=== PATIENT | female | born 1950 | race Caucasian/White ===

== ENCOUNTER 2017-03-27 10:03 | Outpatient (CLI) | payer MEDICARE, OTHER ==
--- NOTE | 2017-03-27 12:35 | XRAY Report ---
ESOPHAGRAM: 03/27/2017 CLINICAL INDICATION: Cough, food sticking. FINDINGS: Esophagram was performed in the upright and prone position. The hypopharynx appears unrem arkable. Diffuse presbyesophagus is present. No esophageal ulceration, mass lesion, or stricturing is identified. A small sliding hiatal hernia is present, which produced reflux throughout the course of the study. A 13-mm barium pill passed freely through the esophagus and into the stomach. IMPRESSION: PRESBYESOPHAGUS. SMALL SLIDING HIATAL HERNIA, PRODUCING REFLUX. NO EVIDENCE OF ULCERAT ION OR MASS LESION. FLUOROSCOPY TIME: 3 minutes, 9 seconds; 18 spot images obtained. JOB #: [id number] EXT JOB #:[id number]
== END 2017-03-27 10:04 | disposition home or self-care (01) ==
LOC: DI 10:03
PROVIDERS: ATTEND Internal Medicine
DX: K22.8 Other specified diseases of esophagus (principal); K44.9 Diaphragmatic hernia without obstruction or gangrene; K21.9 Gastro-esophageal reflux disease without esophagitis
CPT/HCPCS: 74220

== ENCOUNTER 2017-06-30 11:47 | Outpatient (CLI) | payer MEDICARE, OTHER ==
--- NOTE | 2017-06-30 18:40 | XRAY Report ---
THREE-VIEW RIGHT FOURTH FINGER: 06/30/2017 CLINICAL INDICATION: Injury, pain. FINDINGS: AP, lateral, oblique views of the right fourth finger demonstrate no evidence of fracture or dislocation. 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 No radiopaque foreign body is seen in the soft tissues. IMPRESSION: NORMAL RIGHT FOURTH FINGER. JOB #: [id number] EXT JOB #:[id number]
== END 2017-06-30 11:48 | disposition home or self-care (01) ==
LOC: DI.S 11:47
PROVIDERS: ATTEND Nurse Practitioner Family
DX: S69.91XA Unspecified injury of right wrist, hand and finger(s), initial encounter (principal)
CPT/HCPCS: 73140

== ENCOUNTER 2018-06-10 10:43 | Outpatient (CLI) | payer MEDICARE, OTHER ==
[2018-06-10 17:12] LABS: BASOPHILS % (AUTO) 0.5 %; EOSINOPHILS # (AUTO) 0.1 10^3/uL (0.0-0.7); EOSINOPHILS % (AUTO) 1.7 %; HGB - HEMOGLOBIN 13.4 g/dL (12.0-16.0); LYMPHOCYTES % (AUTO) 35.8 %; MEAN CORPUSCULAR HGB CONC 33.8 g/dL (32.0-36.0); MEAN CORPUSCULAR VOLUME 94.6 fL (81.0-99.0); MEAN PLATELET VOLUME 8.2 fL (7.9-10.8); MONOCYTES # (AUTO) 0.3 10^3/uL (0.0-1.0); MONOCYTES % (AUTO) 6.3 %; NEUTROPHILS % (AUTO) 55.7 %; PLT - PLATELET COUNT 260 10^3/uL (130-450); RED BLOOD COUNT 4.18 10^6/uL (4.20-5.40); RED CELL DISTRIBUTION WIDTH 13.4 % (12.0-15.0); WHITE BLOOD COUNT 5.5 x10^3/uL (4.8-10.8)
[2018-06-10 17:44] LABS: ALBUMIN 3.8 g/dL (3.2-5.5); ALBUMIN/GLOBULIN RATIO 1.2 (1.0-2.2); BILIRUBIN,TOTAL 0.7 mg/dL (0.2-1.0); CALCIUM 9.2 mg/dL (8.5-10.3); CREATININE 0.8 mg/dL (0.4-1.0); TOTAL PROTEIN 6.9 g/dL (6.7-8.2)
[2018-06-10 17:55] LABS: THYROID STIMULATING HORMONE 1.79 uIU/mL (0.34-5.60)
[2018-06-10 17:57] LABS: FREE T4 (FREE THYROXINE) 1.28 ng/dL (0.58-1.64)
== END 2018-06-10 10:44 | disposition home or self-care (01) ==
LOC: LAB.F 10:43
PROVIDERS: ATTEND Family Medicine
DX: E03.9 Hypothyroidism, unspecified (principal); I10 Essential (primary) hypertension
CPT/HCPCS: 36415; 80053; 84439; 84443; 84481; 85025

== ENCOUNTER 2018-07-09 12:21 | Outpatient (CLI) | payer MEDICARE, OTHER ==
--- NOTE | 2018-07-09 19:10 | XRAY Report ---
Reason: HEADACHE,CERVICALGIA Procedure Date: 07/09/2018 Accession Number: [id number] / [id number] Procedure: XR - Skull 2 View CPT Code: FULL RESULT: EXAM: SKULL RADIOGRAPHY EXAM DATE: 07/09/2018 01:09 PM. CLINICAL HISTORY: HEADACHE,CERVICALGIA. COMPARISON: None. TECHNIQUE: 2 views. FINDINGS: Bones: Normal. No fractures or bone lesions. Sinuses: Normal. No opacities or fluid levels. Other: Normal. No soft tissue swelling. IMPRESSION: Normal skull radiography. RADIA
--- NOTE | 2018-07-09 19:16 | XRAY Report ---
Reason: Unilateral headache Procedure Date: 07/09/2018 Accession Number: [id number] / [id number] Procedure: XR - Cervical Spine 2 View CPT Code: FULL RESULT: EXAM: CERVICAL SPINE RADIOGRAPHY EXAM DATE: 07/09/2018 01:09 PM. CLINICAL HISTORY: Unilateral headache. Cervicalgia. COMPARISONS: None. TECHNIQUE: 3 views. FINDINGS: Alignment: Normal. No spondylolisthesis or scoliosis. Bones: The cervical vertebral bodies and posterior elements are well visualized from the skull base through C7-T1. No fractures or bone lesions. Disks: The C4 to C7 disk spaces are moderately narrowed with anterior endplate spurring. Facets: No degenerative disease. Soft Tissues: Normal. No prevertebral soft tissue swelling. The visualized lung apices are clear. IMPRESSION: Moderate degenerative disk change from C4 to C7. RADIA
== END 2018-07-09 12:22 | disposition home or self-care (01) ==
LOC: DI 12:21
PROVIDERS: ATTEND Internal Medicine
DX: M50.321 Other cervical disc degeneration at C4-C5 level (principal); R51 Headache
CPT/HCPCS: 70250; 72040

== ENCOUNTER 2018-10-27 15:38 | Outpatient (CLI) | payer MEDICARE, OTHER ==
[2018-10-27 18:00] LABS: CALCIUM 9.3 mg/dL (8.5-10.3); CREATININE 0.9 mg/dL (0.4-1.0)
== END 2018-10-27 15:39 | disposition home or self-care (01) ==
LOC: LAB.F 15:38
PROVIDERS: ATTEND Internal Medicine Cardiovascular Disease
DX: R06.09 Other forms of dyspnea (principal); I10 Essential (primary) hypertension
CPT/HCPCS: 36415; 80048; 83880

== ENCOUNTER 2018-11-10 15:52 | Outpatient (CLI) | payer MEDICARE, OTHER ==
--- NOTE | 2018-11-11 13:00 | Ultrasound Report ---
Reason: ABDOMINAL PAIN Procedure Date: 11/10/2018 Accession Number: [id number] / [id number] Procedure: US - Abdomen Complete CPT Code: FULL RESULT: EXAM: ABDOMEN ULTRASOUND EXAM DATE: 11/10/2018 04:06 PM. CLINICAL HISTORY: Abdominal pain. COMPARISON: None. TECHNIQUE: Real-time scanning was performed with static images obtained. FINDINGS: Liver: Liver appears echogenic. Right lobe of the liver measures at least 16.2 cm. Main portal vein flow: Hepatopetal. Gallbladder: Status post cholecystectomy. Biliary System: Common bile duct measures 10 mm, within normal limits status post cholecystectomy. No intrahepatic biliary ductal dilation. Pancreas: Visualized portion is unremarkable. Kidneys: Right: 10.8 cm longitudinally. Normal. No contour-deforming mass, stones, or hydronephrosis. Left: 11.4 cm longitudinally. Normal. No contour-deforming mass, stones, or hydronephrosis. Spleen: 9.7 cm. Normal in size and echotexture. Aorta and Inferior Vena Cava: Unremarkable. Other: None. IMPRESSION: Echogenic liver parenchyma which is most often associated with parenchymal disease such as steatosis. RADIA
== END 2018-11-10 15:53 | disposition home or self-care (01) ==
LOC: DI 15:52
PROVIDERS: ATTEND Internal Medicine Gastroenterology
DX: R10.9 Unspecified abdominal pain (principal)
CPT/HCPCS: 76700

== ENCOUNTER 2018-12-21 10:15 | Outpatient (CLI) | payer MEDICARE, OTHER ==
--- NOTE | 2018-12-21 17:19 | DEXA Report ---
Reason: ASYMPTOMATIC MENOPAUSAL STATE Procedure Date: 12/21/2018 Accession Number: [id number] / [id number] Procedure: DEX - Dexa Spine and/or Hip CPT Code: FULL RESULT: EXAM: Dexa Spine and/or Hip DATE: 12/21/2018 11:12 AM CLINICAL HISTORY: ASYMPTOMATIC MENOPAUSAL STATE TECHNIQUE: Dual energy x-ray absorptiometry (DXA) was performed on a mobileo System. Regions measured are the AP Spine, femoral neck, and if needed forearm. COMPARISON: None. In accordance with the International Society for Clinical Densitometry (ISCD) guidelines, data from previous exams may be reanalyzed using current recommendations and techniques. This is done to allow a more accurate basis for comparison with the current study. FINDINGS: The data for the lumbar spine is as follows: BMD (g/cm/cm) T-SCORE Z-SCORE REGION L1 1.427 2.5 3.4 L2 1.473 2.3 3.2 L3 1.593 3.3 4.2 L4 1.622 3.5 4.4 TOTAL 1.532 2.9 3.8 NOTE: All evaluable vertebrae are used for classification The data for the hip is as follows: BMD (g/cm/cm) T-SCORE Z-SCORE REGION Neck 0.968 -0.5 0.7 TOTAL 0.951 -0.4 0.5 NOTE: The femoral neck or total proximal femur, whichever is lowest, is used for classification. IMPRESSION: THE WHO CLASSIFICATION BASED ON THE INTERNATIONAL REFERENCE STANDARD IS NORMAL. THE FRACTURE RISK IS NOT INCREASED. RECOMMENDATION: Patients with diagnosis of osteoporosis or osteopenia should have regular bone mineral density assessment. For those eligible for Medicare, routine testing is allowed once every 2 years. Testing frequency can be increased for patients who have rapidly progressing disease or for those who are receiving medical therapy to restore bone mass. COMMENT: World Health Organization (WHO) definitions for osteoporosis and osteopenia: NORMAL BMD: T-score at -1.0 or higher, fracture risk is low OSTEOPENIA BMD: T-score between -1.0 and -2.5, fracture risk is increased. OSTEOPOROSIS BMD: T-score at -2.5 or lower, fracture risk is high. National Osteoporosis Foundation recommends: 1. Obtain adequate dietary calcium (at least 1200 mg per day) and vitamin D (400-800 international units per day). 2. Participate, as appropriate, in regular weightbearing and muscle-strengthening exercise. 3. Avoid tobacco use and reduce alcohol and caffeine intake. 4. For more detailed information see the website at www.NOF.org.
== END 2018-12-21 10:16 | disposition home or self-care (01) ==
LOC: DI 10:15
PROVIDERS: ATTEND Internal Medicine
DX: Z13.820 Encounter for screening for osteoporosis (principal); Z78.0 Asymptomatic menopausal state
CPT/HCPCS: 77080

== ENCOUNTER 2019-05-24 08:00 | Outpatient (CLI) | payer MEDICARE, OTHER ==
[2019-05-24 18:47] LABS: BASOPHILS % (AUTO) 0.5 %; EOSINOPHILS # (AUTO) 0.1 10^3/uL (0.0-0.7); EOSINOPHILS % (AUTO) 1.5 %; HGB - HEMOGLOBIN 12.7 g/dL (12.0-16.0); LYMPHOCYTES # (AUTO) 2.2 10^3/uL (1.5-3.5); LYMPHOCYTES % (AUTO) 27.8 %; MEAN CORPUSCULAR HEMOGLOBIN 31.3 pg (27.0-31.0); MEAN CORPUSCULAR HGB CONC 32.2 g/dL (32.0-36.0); MEAN CORPUSCULAR VOLUME 97.3 fL (81.0-99.0); MEAN PLATELET VOLUME 10.1 fL (7.9-10.8); MONOCYTES # (AUTO) 0.6 10^3/uL (0.0-1.0); MONOCYTES % (AUTO) 7.3 %; NEUTROPHILS % (AUTO) 62.5 %; PLT - PLATELET COUNT 295 10^3/uL (130-450); RED BLOOD COUNT 4.06 10^6/uL (4.20-5.40); RED CELL DISTRIBUTION WIDTH 12.8 % (12.0-15.0)
== END 2019-05-24 23:59 | disposition home or self-care (01) ==
LOC: LAB.S 08:00
PROVIDERS: ATTEND Physician Assistant
DX: R10.9 Unspecified abdominal pain (principal)
CPT/HCPCS: 36415; 85025

== ENCOUNTER 2019-05-30 10:59 | Outpatient (CLI) | payer MEDICARE, OTHER ==
[2019-05-30] MEDS ORDERED: IOVERSOL 320 50 ML VIAL ONE (11:21)
[2019-05-30] MEDS ORDERED: IOVERSOL 320 100 ML VIAL IVP ONE ×2 (11:21→16:44)
[2019-05-30 11:29] LABS: CREATININE 0.9 mg/dL (0.4-1.0)
[2019-05-30] MEDS ORDERED: IOVERSOL 320 50 ML VIAL PO ONE (16:44)
--- NOTE | 2019-05-31 15:45 | CT Report ---
Reason: ABDOMINAL PAIN, GERD Procedure Date: 05/30/2019 Accession Number: [id number] / [id number] Procedure: CT - Abdomen/Pelvis W CPT Code: FULL RESULT: EXAM: CT ABDOMEN AND PELVIS EXAM DATE: 05/30/2019 12:44 PM. CLINICAL HISTORY: ABDOMINAL PAIN, GERD. COMPARISONS: None. TECHNIQUE: Routine helical CT imaging was performed through the abdomen and pelvis. IV contrast: OPTI 320 100ML. Enteric contrast: No. Reconstructions: Coronal and sagittal. In accordance with CT protocol optimization, one or more of the following dose reduction techniques were utilized for this exam: automated exposure control, adjustment of mA and/or KV based on patient size, or use of iterative reconstructive technique. FINDINGS: Lung Bases: Linear changes are noted in the lung bases most likely present atelectasis or scarring. 2 nodules are demonstrated in the right lower lobe of lung. Solid nodule measures 7 mm (image 5 of series 3). There is a cavitary lesion measuring 8 mm (7 series 3). No pleural effusion is noted. Liver is without evidence of an enhancing mass. There are postoperative changes consistent with cholecystectomy. , Pancreas, and adrenal glands are normal kidneys without evidence of mass or hydronephrosis. Peritoneal Cavity/Bowel: There is no CT evidence of acute appendicitis. Diverticuli are seen throughout the colon. There is no evidence of diverticulitis. Pelvic Organs: No mass or cyst is seen within the pelvis. There is no periaortic or pelvic lymphadenopathy. Vasculature: There is atherosclerosis of the aorta and its branches, including the coronary arteries. Bones: Degenerative changes of the thoracic and lumbar spine are noted. There are postoperative changes consistent with a right hip arthroplasty. IMPRESSION: Right lower lobe lung nodules. A 6-12 month follow-up CT is recommended Atherosclerosis of the aorta and its branches, including the coronary arteries. Diverticulosis throughout the colon without evidence of diverticulitis. RADIA
== END 2019-05-30 11:00 | disposition home or self-care (01) ==
LOC: DI 10:59
PROVIDERS: ATTEND Physician Assistant
DX: R10.9 Unspecified abdominal pain (principal); K21.9 Gastro-esophageal reflux disease without esophagitis; R91.8 Other nonspecific abnormal finding of lung field; I25.10 Atherosclerotic heart disease of native coronary artery without angina pectoris; I70.0 Atherosclerosis of aorta; K57.30 Diverticulosis of large intestine without perforation or abscess without bleeding
CPT/HCPCS: 36415; 74177; 82565; 84520; Q9967

== ENCOUNTER 2019-07-17 18:48 | Emergency (ER) | payer MEDICARE, OTHER ==
--- NOTE | 2019-07-17 19:17 | ED Physician Documentation ---
PD HPI FEMALE - Stated complaint Stated Complaint: FEM - Chief complaint Chief Complaint: UTI - History obtained from History obtained from: Patient - History of Present Illness Timing - onset: How many weeks ago (2.5) Timing - details: Still present Associated symptoms: Chest/shoulder pain (Below the right shoulder blade), Dysuria, Urinary frequency. No: Fever, Abdominal pain, Hematuria Recently seen: Not recently seen - Additional information Additional information: This is a 69-year-old who presents with her complaints that they were on a trip in [place] for about a week and a half returned home on Thursday and she had started developing symptoms of urinary tract infection while on the trip. She had increased urination and only dribbling of urine feeling letter urgency. A couple of days ago she developed pain, below the right shoulder blade in the right flank area. She does have a history of UTIs. She has not seen blood in the urine. Denies fever, nausea or vomiting or diarrhea. She has not felt dizzy. She has not noted any rash. Review of Systems Constitutional: denies: Fever Respiratory: reports: Cough (chronic and prior work-up). denies: Dyspnea PD PAST MEDICAL HISTORY - Past Medical History Cardiovascular: Hypertension Respiratory: Asthma Endocrine/Autoimmune: HyPOthyroidism GI: GERD, Colon polyps : None HEENT: None Psych: None Musculoskeletal: None Derm: None - Past Surgical History Past Surgical History: Yes General: Cholecystectomy, Colonoscopy Ortho: Hip replacement, Knee replacement, Shoulder arthroplasty, Arthroscopic surgery /WHEAT CLEANER: Hysterectomy, Breast reduction - Present Medications Home Medications: Ambulatory Orders Medication Instructions Recorded Confirmed Cholecalciferol (Vitamin D3) 2,000 unit PO DAILY 03/16/13 08/27/14 [Vitamin D] Levothyroxine [Synthroid] 112 mcg PO QDAC 03/16/13 08/27/14 cloNIDine [Catapres] 0.1 mg PO TID 03/16/13 08/27/14 Albuterol Sulfate 4 mg PO BID #20 tablet 07/30/16 Azithromycin 250 mg 07/30/16 Benzonatate [Tessalon] 100 mg PO TID PRN #25 capsule 07/30/16 Cetirizine [ZyrTEC] 10 mg PO DAILY #15 tablet 07/30/16 dexAMETHasone [Decadron] 4 mg PO DAILY #5 tablet 07/30/16 Famotidine 20 mg PO DAILY #30 tablet 09/14/18 Sucralfate [Carafate] 1 gm PO ACHS #40 tablet 09/14/18 - Allergies Allergies/Adverse Reactions: Allergies Allergy/AdvReac Type Severity Reaction Status Date / Time acetaminophen [From Vicodin] Allergy Intermediate Nausea Verified 07/17/19 18:54 hydrocodone bitartrate * Allergy Intermediate Nausea Verified 07/17/19 18:54 [From Vicodin] latex Allergy Intermediate Hives Verified 07/17/19 18:54 morphine Allergy Intermediate Nausea Verified 07/17/19 18:54 - Social History Does the pt smoke?: No Smoking Status: Never smoker Does the pt drink ETOH?: Yes Does the pt have substance abuse?: No - Immunizations Immunizations are current?: Yes PD ED PE NORMAL - Vitals Vital signs reviewed: Yes - General General: Alert and oriented X 3, No acute distress, Well developed/nourished - HEENT HEENT: Atraumatic, Moist mucous membranes - Cardiac Cardiac: RRR, No murmur - Respiratory Respiratory: No respiratory distress - Abdomen Abdomen: Normal bowel sounds, Soft, Non tender - Back Back: Other (Complains of right costovertebral angle tenderness). No: No CVA TTP - Derm Derm: Normal color, Warm and dry, No rash - Extremities Extremities: No edema - Neuro Neuro: Alert and oriented X 3, No motor deficit, No sensory deficit, Normal speech - Psych Psych: Normal mood, Normal affect Results - Vitals Vitals: Oxygen O2 Source Room air - Labs Labs: Laboratory Tests 07/17/19 19:15 Urine Color LT. YELLOW Urine Clarity CLEAR Urine pH 5.5 Ur Specific [place] 1.025 Urine Protein NEGATIVE Urine Glucose (UA) NEGATIVE Urine Ketones TRACE Urine Occult Blood NEGATIVE Urine Nitrite NEGATIVE Urine Bilirubin NEGATIVE Urine Urobilinogen 0.2 (NORMAL) Ur Leukocyte Esterase NEGATIVE Ur Microscopic Review NOT INDICATED Urine Culture Comments NOT INDICATED PD MEDICAL DECISION MAKING - ED course Complexity details: reviewed results, d/w patient, d/w family ED course: Urinalysis was negative. The patient does not have a rash to suggest shingles. I am wondering if this could be musculoskeletal due to all the travel and sitting. Aleve or ibuprofen if needed for pain. Follow-up with your primary care provider if her symptoms persist. Drink lots of water. Departure - Departure Disposition: 01 Home, Self Care Clinical Impression: Right-sided back pain Qualifiers: Back pain location: low back pain Chronicity: acute Sciatica presence: without sciatica Qualified Code(s): M54.5 - Low back pain Condition: Good Instructions: Low Back Pain Self Care, ED Back Care Tips, ANTI-INFLAMMATORY, General Follow-Up: DIANA WINTERS MD [Primary Care Provider] - Comments: Try to avoid any strenuous activity but also do not be too sedentary. Ice to the lower back and Aleve or ibuprofen [id number]. I have provided some gentle stretching exercises. Follow-up with the primary care provider if your symptoms persist or worsen. Discharge Date/Time: 07/17/19 21:10
[2019-07-17 19:23] LABS: BILIRUBIN,URINE NEGATIVE (NEGATIVE); GLUCOSE, URINE (UA) NEGATIVE (NEGATIVE); KETONES,URINE (UA) TRACE mg/dL (NEGATIVE); LEUKOCYTE ESTERASE, URINE NEGATIVE (NEGATIVE); NITRITE,URINE NEGATIVE (NEGATIVE); OCCULT BLOOD,URINE NEGATIVE (NEGATIVE); PH,URINE 5.5 PH (5.0-7.5); PROTEIN,URINE NEGATIVE (NEGATIVE); UROBILINOGEN,URINE 0.2 (NORMAL) E.U./dL (NORMAL)
[2019-07-17 19:24] LABS: CLARITY,URINE CLEAR (CLEAR)
[2019-07-17 21:10] VITALS: BP 148/85
== END 2019-07-17 21:10 | disposition home or self-care (01) ==
LOC: ED 18:48
DX: M54.5 Low back pain (principal); I10 Essential (primary) hypertension
CPT/HCPCS: 81001; 81003; 87086; 99282

== ENCOUNTER 2020-03-20 15:02 | Outpatient (CLI) | payer MEDICARE, OTHER ==
[2020-03-20 20:08] LABS: ALBUMIN 4.3 g/dL (3.2-5.5); ALBUMIN/GLOBULIN RATIO 1.3 (1.0-2.2); BILIRUBIN,TOTAL 0.7 mg/dL (0.2-1.0); CALCIUM 9.6 mg/dL (8.5-10.3); TOTAL PROTEIN 7.7 g/dL (6.7-8.2)
== END 2020-03-20 15:03 | disposition home or self-care (01) ==
LOC: LAB.S 15:02
PROVIDERS: ATTEND Physician Assistant Medical
DX: Z87.19 Personal history of other diseases of the digestive system (principal)
CPT/HCPCS: 36415; 80053

== ENCOUNTER 2020-03-20 15:57 | Outpatient (CLI) | payer MEDICARE, OTHER ==
--- NOTE | 2020-03-20 17:06 | CT Report ---
PROCEDURE: Abdomen/Pelvis WO INDICATIONS: Abdominal pain TECHNIQUE: Noncontrast 5 mm thick sections acquired from the diaphragms to the symphysis. 5 mm coronal and sagi ttal reformats were then performed. For radiation dose reduction, the following was used: automated exposure control, adjustment of mA and/or kV according to patient size. COMPARISON: None. FINDINGS: Image quality: Excellent. ABDOMEN: Exam is limited due to lack of IV contrast. In particular, evaluation of the solid abdominal viscera and vasculature is limited. Lung bases: Lung bases are clear. Heart size is normal. Solid organs: Liver and spleen are normal in size. Gallbladder has been removed. Pancreas unremarka ble. No adrenal gland mass. No renal calculus or hydronephrosis. Normal course and caliber of the ure ters. Peritoneum and bowel: Unenhanced bowel loops demonstrate normal wall thickness and caliber. No free fluid or air. Nodes and vessels: No retroperitoneal or mesenteric adenopathy by size criteria. Aorta and inferior vena cava are normal in caliber. Miscellaneous: No ventral hernias. PELVIS: Genitourinary: Bladder wall thickness is normal. Status post hysterectomy and presumably bilateral salpingo-oophorectomy. Miscellaneous: No inguinal hernias or adenopathy. Bones: Status post right total hip arthroplasty. [id number] osteophytic changes in the left fem oral acetabular joint. Degenerative changes in the lower lumbar spine. No acute or suspicious osseous lesion. IMPRESSION: No acute finding or abnormality to explain abdominal pain. Reviewed by: Xavier Antonio MD on 03/20/2020 5:05 PM PDT Approved by: Xavier Antonio MD on 03/20/2020 5:05 PM PDT Station ID: [id number]
== END 2020-03-20 15:58 | disposition home or self-care (01) ==
LOC: DI 15:57
PROVIDERS: ATTEND Physician Assistant Medical
DX: N81.6 Rectocele (principal); R10.9 Unspecified abdominal pain; Z87.19 Personal history of other diseases of the digestive system
CPT/HCPCS: 74176

== ENCOUNTER 2020-05-15 13:49 | Outpatient (CLI) | payer MEDICARE, OTHER ==
--- NOTE | 2020-05-15 14:30 | XRAY Report ---
PROCEDURE: Chest 2 View X-Ray INDICATIONS: BODY IN DIGESTIVE TRACT TECHNIQUE: 2 view(s) of the chest. COMPARISON: Chest x-ray, one view, 09/14/2018. FINDINGS: Surgical changes and devices: None. Lungs and pleura: No pleural effusions or pneumothorax. Lungs are clear. Right diaphragmatic event ration. Mediastinum: Mediastinal contours are normal. Heart size is normal. Bones and chest wall: No suspicious bony abnormalities. Soft tissues appear unremarkable. IMPRESSION: No acute cardiopulmonary disease. Reviewed by: Abhinav Ryder MD on 05/15/2020 2:28 PM PDT Approved by: Abhinav Ryder MD on 05/15/2020 2:28 PM PDT Station ID: [id number]
== END 2020-05-15 13:50 | disposition home or self-care (01) ==
LOC: DI.S 13:49
PROVIDERS: ATTEND Internal Medicine Gastroenterology
DX: T18.9XXD Foreign body of alimentary tract, part unspecified, subsequent encounter (principal)
CPT/HCPCS: 71046

== ENCOUNTER 2020-10-16 10:57 | Outpatient (CLI) | payer MEDICARE, OTHER | END 2020-10-16 10:58 | disposition home or self-care (01) | LOC: COV 10:57 | PROVIDERS: ATTEND Family Medicine | DX: R05 Cough (principal); R06.02 Shortness of breath; M79.10 Myalgia, unspecified site; R53.83 Other fatigue; R68.83 Chills (without fever); R07.0 Pain in throat; R09.81 Nasal congestion; J34.89 Other specified disorders of nose and nasal sinuses; Z20.822 Contact with and (suspected) exposure to COVID-19 ==

== ENCOUNTER 2020-11-20 10:43 | Outpatient (CLI) | payer MEDICARE, OTHER | END 2020-11-20 10:44 | disposition home or self-care (01) | LOC: LAB.S 10:43 | PROVIDERS: ATTEND Internal Medicine Cardiovascular Disease | DX: I10 Essential (primary) hypertension (principal); R00.0 Tachycardia, unspecified; E78.5 Hyperlipidemia, unspecified; R01.1 Cardiac murmur, unspecified | CPT/HCPCS: 36415; 81599; 82172 ==

== ENCOUNTER 2022-01-08 15:01 | Outpatient (CLI) | payer MEDICARE, OTHER ==
[2022-01-08 20:28] LABS: ALBUMIN 4.1 g/dL (3.2-5.5); ALBUMIN/GLOBULIN RATIO 1.3 (1.0-2.2); ALKALINE PHOSPHATASE 55 IU/L (42-121); ALT ALANINE AMINOTRANSFERASE 23 IU/L (10-60); AST ASPARTATE AMINOTRANSFERASE 20 IU/L (10-42); BILIRUBIN,TOTAL 0.6 mg/dL (0.2-1.0); BUN - BLOOD UREA NITROGEN 21 mg/dL (6-20); CALCIUM 9.5 mg/dL (8.5-10.3); CARBON DIOXIDE - CO2 27 mmol/L (21-32); CHLORIDE 102 mmol/L (101-111); CHOL/HDL RATIO 3.5 (<4.4); CHOLESTEROL 197 mg/dL; GFR - MDRD 54 (>89); GLUCOSE 108 mg/dL (70-100); HDL CHOLESTEROL 57 mg/dL; LDL CHOLESTEROL,CALCULATED 118 mg/dL; LDL/HDL RATIO 2.1 (<4.4); POTASSIUM 4.4 mmol/L (3.5-5.0); SODIUM 138 mmol/L (135-145); TOTAL PROTEIN 7.3 g/dL (6.7-8.2); TRIGLYCERIDES 110 mg/dL; VLDL CHOLESTEROL 22 mg/dL
== END 2022-01-08 15:02 | disposition home or self-care (01) ==
LOC: LAB.S 15:01
PROVIDERS: ATTEND Internal Medicine Cardiovascular Disease
DX: I10 Essential (primary) hypertension (principal); E78.5 Hyperlipidemia, unspecified
CPT/HCPCS: 36415; 80053; 80061; 81599; 82172; 83721

== ENCOUNTER 2022-01-10 22:06 | Emergency (ER) | payer MEDICARE, OTHER ==
[2022-01-10 23:08] LABS: BASOPHILS % (AUTO) 0.2 %; EOSINOPHILS # (AUTO) 0.1 10^3/uL (0.0-0.7); EOSINOPHILS % (AUTO) 0.5 %; HCT - HEMATOCRIT 38.9 % (37.0-47.0); HGB - HEMOGLOBIN 13.2 g/dL (12.0-16.0); LYMPHOCYTES # (AUTO) 1.5 10^3/uL (1.5-3.5); LYMPHOCYTES % (AUTO) 11.4 %; MEAN CORPUSCULAR HEMOGLOBIN 32.2 pg (27.0-31.0); MEAN CORPUSCULAR HGB CONC 33.9 g/dL (32.0-36.0); MEAN CORPUSCULAR VOLUME 94.9 fL (81.0-99.0); MEAN PLATELET VOLUME 9.2 fL (7.9-10.8); MONOCYTES # (AUTO) 0.5 10^3/uL (0.0-1.0); MONOCYTES % (AUTO) 4.1 %; NEUTROPHILS # (AUTO) 10.7 10^3/uL (1.5-6.6); NEUTROPHILS % (AUTO) 83.5 %; PLT - PLATELET COUNT 262 10^3/uL (130-450); RED CELL DISTRIBUTION WIDTH 12.5 % (12.0-15.0); WHITE BLOOD COUNT 12.8 x10^3/uL (4.8-10.8)
[2022-01-10 23:37] LABS: ALBUMIN 3.9 g/dL (3.2-5.5); ALBUMIN/GLOBULIN RATIO 1.1 (1.0-2.2); BILIRUBIN,TOTAL 0.8 mg/dL (0.2-1.0); CALCIUM 9.4 mg/dL (8.5-10.3); CREATININE 1.1 mg/dL (0.4-1.0); POTASSIUM 3.7 mmol/L (3.5-5.0); TOTAL PROTEIN 7.3 g/dL (6.7-8.2)
--- NOTE | 2022-01-10 23:55 | ED Physician Documentation ---
PD HPI ABD PAIN - Stated complaint Stated Complaint: VOMIT/DIARRHEA - Chief complaint Chief Complaint: Abd Pain - Additional information Additional information: Patient is 71-year-old female with past medical significant for hiatal hernia, peptic ulcer disease, status postcholecystectomy presenting to the emergency department with abdominal pain, nausea, vomiting and diarrhea. Reports symptoms began acutely this evening shortly after eating dinner. Vomiting preceded diarrhea. Reports epigastric abdominal pain. He does report that she had a glass of port which is atypical for her but denies excessive alcohol intake. Reports that she cannot take nonsteroidal anti-inflammatory medications due to her history of peptic ulcer disease but also reports that she does not currently take any antiacid medications. Denies fever, chills, chest pain, shortness of breath. Review of Systems Ten Systems: 10 systems reviewed and negative Constitutional: denies: Fever Eyes: denies: Loss of vision Ears: denies: Loss of hearing Nose: denies: Rhinorrhea / runny nose Throat: denies: Dental pain / toothache Cardiac: denies: Chest pain / pressure GI: reports: Abdominal Pain, Nausea, Vomiting, Diarrhea : denies: Dysuria Skin: denies: Rash Musculoskeletal: denies: Neck pain PD PAST MEDICAL HISTORY - Past Medical History Cardiovascular: Hypertension Respiratory: Asthma Neuro: None Endocrine/Autoimmune: HyPOthyroidism GI: GERD, Colon polyps PHYSICIAN OFFICE SECRETARY: None : None HEENT: None Psych: None Musculoskeletal: None Derm: None - Past Surgical History Past Surgical History: Yes General: Cholecystectomy, Colonoscopy Ortho: Hip replacement, Knee replacement, Shoulder arthroplasty, Arthroscopic surgery /PHYSICIAN OFFICE SECRETARY: Hysterectomy, Breast reduction HEENT: Cataracts - Present Medications Home Medications: Ambulatory Orders Medication Instructions Recorded Confirmed Cholecalciferol (Vitamin D3) 2,000 unit PO DAILY 03/16/13 01/11/22 [Vitamin D] Levothyroxine [Synthroid] 112 mcg PO QDAC 03/16/13 01/11/22 cloNIDine [Catapres] 0.1 mg PO TID 03/16/13 01/11/22 Albuterol Sulfate 4 mg PO BID #20 tablet 07/30/16 01/11/22 Benzonatate [Tessalon] 100 mg PO TID PRN #25 capsule 07/30/16 01/11/22 Cetirizine [ZyrTEC] 10 mg PO DAILY #15 tablet 07/30/16 01/11/22 Famotidine 20 mg PO DAILY #30 tablet 09/14/18 01/11/22 Ondansetron Odt [Zofran] 4 mg TL Q6H PRN #10 tablet 01/11/22 Spironolactone [Aldactone] 25 mg PO DAILY 01/11/22 01/11/22 Sucralfate [Carafate] 1 gm PO ACHS #120 ml 01/11/22 - Allergies Allergies/Adverse Reactions: Allergies Allergy/AdvReac Type Severity Reaction Status Date / Time acetaminophen [From Vicodin] Allergy Intermediate Nausea Verified 01/10/22 22:24 hydrocodone bitartrate * Allergy Intermediate Nausea Verified 01/10/22 22:24 [From Vicodin] latex Allergy Intermediate Hives Verified 01/10/22 22:24 morphine Allergy Intermediate Nausea Verified 01/10/22 22:24 - Social History Does the pt smoke?: No Smoking Status: Never smoker Does the pt drink ETOH?: Yes Does the pt have substance abuse?: No - Immunizations Immunizations are current?: Yes Immunizations: TDAP >10years/unknown - POLST Patient has POLST: No PD ED PE NORMAL - Vitals Vital signs reviewed: Yes - General General: Alert and oriented X 3 - HEENT HEENT: Atraumatic - Neck Neck: Supple, no meningeal sign - Cardiac Cardiac: RRR - Respiratory Respiratory: No respiratory distress - Abdomen Abdomen: Normal bowel sounds, Soft, Non tender, Non distended - Female Female : Deferred - Rectal Rectal: Deferred Results - Vitals Vitals: Vital Signs - 24 hr 01/10/22 01/10/22 01/11/22 22:20 22:49 01:04 Temperature 35.5 C L Heart Rate 71 68 Respiratory 18 21 20 Rate Blood Pressure 150/84 H 176/76 H 138/82 H O2 Saturation 99 99 98 01/11/22 01/11/22 03:52 04:55 Temperature 36.9 C 36.2 C L Heart Rate 65 75 Respiratory 15 18 Rate Blood Pressure 113/59 L 113/59 L O2 Saturation 96 95 Oxygen O2 Source Room air - EKG (time done) 0347 Rate: Rate (enter#) (65) Rhythm: NSR [place]: Normal Intervals: Normal LA QRS: Normal Ischemia: Normal ST segments Computer interpretation: Agree with computer - Labs Labs: Laboratory Tests 01/10/22 01/10/22 01/10/22 23:03 23:03 23:03 WBC 12.8 H RBC 4.10 L Hgb 13.2 Hct 38.9 MCV 94.9 MCH 32.2 H MCHC 33.9 RDW 12.5 Plt Count 262 MPV 9.2 Neut # (Auto) 10.7 H Lymph # (Auto) 1.5 [place] # (Auto) 0.5 Eos # (Auto) 0.1 Baso # (Auto) 0.0 Absolute Nucleated RBC 0.00 Nucleated RBC % 0.0 Sodium 136 Potassium 3.7 Chloride 99 L Carbon Dioxide 24 Anion Gap 13.0 BUN 29 H Creatinine 1.1 H Estimated GFR (MDRD) 49 L Glucose 145 H Lactic Acid Calcium 9.4 Total Bilirubin 0.8 AST 22 ALT 23 Alkaline Phosphatase 48 Troponin I High Sens 12.7 Total Protein 7.3 Albumin 3.9 Globulin 3.4 Albumin/Globulin Ratio 1.1 Lipase 690 H Ethyl Alcohol 01/10/22 01/10/22 23:03 23:03 WBC RBC Hgb Hct MCV MCH MCHC RDW Plt Count MPV Neut # (Auto) Lymph # (Auto) [place] # (Auto) Eos # (Auto) Baso # (Auto) Absolute Nucleated RBC Nucleated RBC % Sodium Potassium Chloride Carbon Dioxide Anion Gap BUN Creatinine Estimated GFR (MDRD) Glucose Lactic Acid 0.6 Calcium Total Bilirubin AST ALT Alkaline Phosphatase Troponin I High Sens Total Protein Albumin Globulin Albumin/Globulin Ratio Lipase Ethyl Alcohol < 5.0 PD MEDICAL DECISION MAKING - ED course Complexity details: reviewed results, re-evaluated patient, d/w patient, d/w family ED course: Patient is 71-year-old female presenting to the emergency department with acute onset abdominal pain with associated nausea and vomiting. Afebrile, hemodynamically stable on arrival to the emergency department. Abdominal exam benign . Patient given medication for pain and nausea in the emergency department. Labs obtained demonstrated a mild leukocytosis as well as a mild elevation in lipase. Of note lipase was not 3 times upper limit of normal and there was no specific epigastric tenderness or inflammatory changes noted on sub sequent imaging that would be required for formal diagnosis of pancreatitis. Patient is status post cholecystectomy in the distant past. I did obtain a noncontrast CT as she has an iodine allergy which did demonstrate a moderately sized hiatal hernia. She was monitored in the emergency department for several hours. Reported feeling significantly better over that time. Did request Carafate as she states that she has responded well to this medication in the past. At this time will discharge for follow-up with primary care as needed. Otherwise clear return precautions and follow-up instructions were given prior to discharge. Clinical impression, nausea, vomiting, diarrhea, abdominal pain, Hiatal hernia. Departure - Departure Disposition: 01 Home, Self Care Clinical Impression: Abdominal pain, Vomiting, Hiatal hernia, Elevated lipase Instructions: ED Abdominal Pain Female Non-Specific Abdominal Pain Prescriptions: Sucralfate [Carafate] 1 gm PO ACHS #120 ml Ondansetron Odt [Zofran] 4 mg TL Q6H PRN #10 tablet PRN Reason: Nausea / Vomiting Comments: Thank you for allowing us to care for you today at [facility]. Your prescriptions were sent to [facility] in [place]. In the emergency department today your blood testing showed a very minimal elevation in white blood cell count and a small elevation in lipase.The CT scan did not show any indications of acute inflammation or surgical emergency and you were also noted to have a moderately sized hiatal hernia. A definitive cause for your symptoms was not identified however overall the testing is reassuring as is the fact that you are feeling better now. I would like you to begin a short course of Carafate as this is a medication that you have tolerated in the past that has helped with gastritis or peptic ulcer disease. Also be sending a prescription for some medication for nausea to your preferred pharmacy. Please drink plenty of fluids and get plenty of rest. Please follow-up with your primary care doctor soon as possible. If it anytime you have any new or worsening symptoms please not hesitate to return. Discharge Date/Time: 01/11/22 04:58
[2022-01-11] MEDS ORDERED: SODIUM CHLORIDE 0.9% 1,000 ML IV STA (00:29)
[2022-01-11] MEDS ORDERED: fentaNYL 100 MCG/2 ML VIAL IVP STA (00:30)
[2022-01-11] MEDS ORDERED: ONDANSETRON 4 MG/2 ML VIAL IVP STA (00:30)
[2022-01-11] MEDS ORDERED: IOVERSOL 320 50 ML VIAL ONE (01:52)
[2022-01-11 03:54] VITALS: BP 113/59
[2022-01-11] MEDS ORDERED: ONDANSETRON ODT 4 MG Prepack 2 TL PRN (04:16)
[2022-01-11] MEDS ORDERED: SUCRALFATE 1 GM/10 ML UDC PO STA (04:39)
--- NOTE | 2022-01-11 08:04 | CT Report ---
PROCEDURE: CT abdomen and pelvis without contrast INDICATIONS: abd pain, contrast allergy TECHNIQUE: Noncontrast 5 mm thick sections acquired from the diaphragms to the symphysis. 5 mm coronal and sagi ttal reformats were then performed. For radiation dose reduction, the following was used: automated exposure control, adjustment of mA and/or kV according to patient size. COMPARISON: CT abdomen and pelvis 03/20/2020 FINDINGS: Image quality: Excellent. ABDOMEN: Lung bases: Small peripheral right lower lobe pulmonary nodule measures 8 mm, previously 6 mm. Dense coronary artery vascular calcification present. Mild dependent atelectasis. Moderate hiatal hernia. Solid organs: Liver and spleen are normal in size. Gallbladder is been surgically removed. Pancrea s is normal in contours. No adrenal nodules. Kidneys are normal in size, without hydronephrosis or nephrolithiasis. Peritoneum and bowel: Unenhanced bowel loops demonstrate normal wall thickness and caliber. No free fluid or air. Multiple diverticula arise from the sigmoid colon without diverticulitis. Nodes and vessels: No retroperitoneal or mesenteric adenopathy by size criteria. Aorta and inferior vena cava are normal in caliber. 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 Atheroscler otic calcification of the abdominal aorta without evidence of aneurysm. Miscellaneous: No ventral hernias. PELVIS: Genitourinary: Bladder wall thickness is normal. Miscellaneous: No inguinal hernias or adenopathy. Bones: No suspicious bony lesions. No vertebral body compression fractures. Right hip prosthesis i n good position IMPRESSION: 1. No acute CT findings in the abdomen and pelvis. 2. Trace enlargement of a right lower lobe pulmonary nodule. Consider 3-6 month follow-up CT chest 3. Moderate hiatal hernia, cholecystectomy, diverticulosis without evidence of diverticulitis Note: Final report is concordant with preliminary report provided by [employer] Reviewed by: Francisco Morales MD on 01/11/2022 7:03 AM [place] Approved by: Francisco Morales MD on 01/11/2022 7:03 AM [place] Station ID: [id number]
== END 2022-01-11 04:58 | disposition home or self-care (01) ==
LOC: ED 22:06
DX: K44.9 Diaphragmatic hernia without obstruction or gangrene (principal); R10.13 Epigastric pain; R74.8 Abnormal levels of other serum enzymes
CPT/HCPCS: 36415; 74176; 80053; 83605; 83690; 84484; 85025; 93005; 96374; 99283; 99284; A9270; G0480; 80320

== ENCOUNTER 2022-01-20 14:21 | Emergency (ER) | payer MEDICARE, OTHER ==
[2022-01-20 15:06] LABS: BASOPHILS % (AUTO) 0.5 %; EOSINOPHILS # (AUTO) 0.1 10^3/uL (0.0-0.7); EOSINOPHILS % (AUTO) 1.5 %; HCT - HEMATOCRIT 40.9 % (37.0-47.0); HGB - HEMOGLOBIN 13.8 g/dL (12.0-16.0); LYMPHOCYTES # (AUTO) 2.2 10^3/uL (1.5-3.5); LYMPHOCYTES % (AUTO) 27.8 %; MEAN CORPUSCULAR HEMOGLOBIN 32.5 pg (27.0-31.0); MEAN CORPUSCULAR HGB CONC 33.7 g/dL (32.0-36.0); MEAN CORPUSCULAR VOLUME 96.5 fL (81.0-99.0); MEAN PLATELET VOLUME 9.3 fL (7.9-10.8); MONOCYTES # (AUTO) 0.6 10^3/uL (0.0-1.0); MONOCYTES % (AUTO) 7.1 %; NEUTROPHILS % (AUTO) 62.8 %; PLT - PLATELET COUNT 296 10^3/uL (130-450); RED BLOOD COUNT 4.24 10^6/uL (4.20-5.40); RED CELL DISTRIBUTION WIDTH 12.6 % (12.0-15.0); WHITE BLOOD COUNT 7.9 x10^3/uL (4.8-10.8)
[2022-01-20 15:12] LABS: BILIRUBIN,URINE NEGATIVE (NEGATIVE); GLUCOSE, URINE (UA) NEGATIVE (NEGATIVE); KETONES,URINE (UA) NEGATIVE (NEGATIVE); LEUKOCYTE ESTERASE, URINE NEGATIVE (NEGATIVE); NITRITE,URINE NEGATIVE (NEGATIVE); OCCULT BLOOD,URINE NEGATIVE (NEGATIVE); PROTEIN,URINE NEGATIVE (NEGATIVE); UROBILINOGEN,URINE 0.2 (NORMAL) E.U./dL (NORMAL)
[2022-01-20 15:13] LABS: CLARITY,URINE CLEAR (CLEAR)
[2022-01-20 15:24] LABS: ALBUMIN 4.3 g/dL (3.2-5.5); ALBUMIN/GLOBULIN RATIO 1.2 (1.0-2.2); BILIRUBIN,TOTAL 0.5 mg/dL (0.2-1.0); CALCIUM 10.1 mg/dL (8.5-10.3); POTASSIUM 4.2 mmol/L (3.5-5.0); TOTAL PROTEIN 7.9 g/dL (6.7-8.2)
[2022-01-20] MEDS ORDERED: KETOROLAC 60 MG/2 ML VIAL IM STA (17:37)
--- NOTE | 2022-01-20 17:40 | ED Physician Documentation ---
History of Present Illness - Stated complaint Stated Complaint: LT SIDE BACK PX - Chief complaint Chief Complaint: Abd Pain - Additonal information Additional information: 71-year-old female presents emergency department for evaluation of left posterior back pain. Reports pain in mid thoracic area that radiates to her left flank and CVA area. Was seen in this emergency department on 10 January at that time having epigastric pain nausea and vomiting. Was found to have an elevated lipase. She did not require admission to the hospital and was referred to GI. She has that appointment scheduled on 27 January. She denies any further nausea or vomiting. She continues to have some mild diarrhea. No dysuria urgency or frequency. No chest pain or shortness of air. She does have a chronic cough which she has had for multiple years. CT scan completed on the showed no findings of kidney stones or ureter colic. 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 Review of Systems Constitutional: reports: Reviewed and negative Ears: reports: Reviewed and negative Throat: reports: Dental pain / toothache Cardiac: reports: Reviewed and negative Respiratory: reports: Reviewed and negative GI: reports: Reviewed and negative : reports: Reviewed and negative PD PAST MEDICAL HISTORY - Past Medical History Cardiovascular: Hypertension Respiratory: Asthma Neuro: None Endocrine/Autoimmune: HyPOthyroidism GI: GERD, Colon polyps TRAINING PERSONNEL SUPERVISOR: None : None HEENT: None Psych: None Musculoskeletal: None Derm: None - Past Surgical History Past Surgical History: Yes General: Cholecystectomy, Colonoscopy Ortho: Hip replacement, Knee replacement, Shoulder arthroplasty, Arthroscopic surgery /TRAINING PERSONNEL SUPERVISOR: Hysterectomy, Breast reduction HEENT: Cataracts - Present Medications Home Medications: Ambulatory Orders Medication Instructions Recorded Confirmed Levothyroxine [Synthroid] 112 mcg PO QDAC 03/16/13 01/20/22 Spironolactone [Aldactone] 25 mg PO DAILY 01/11/22 01/20/22 Chlorthalidone 12.5 mg ORAL DAILY 01/20/22 01/20/22 - Allergies Allergies/Adverse Reactions: Allergies Allergy/AdvReac Type Severity Reaction Status Date / Time acetaminophen [From Vicodin] Allergy Intermediate Nausea Verified 01/20/22 14:43 hydrocodone bitartrate * Allergy Intermediate Nausea Verified 01/20/22 14:43 [From Vicodin] latex Allergy Intermediate Hives Verified 01/20/22 14:43 morphine Allergy Intermediate Nausea Verified 01/20/22 14:43 - Social History Does the pt smoke?: No Smoking Status: Never smoker Does the pt drink ETOH?: Yes Does the pt have substance abuse?: No - Immunizations Immunizations are current?: Yes Immunizations: TDAP >10years/unknown - POLST Patient has POLST: No PD ED PE NORMAL - General General: Alert and oriented X 3, No acute distress - HEENT HEENT: PERRL - Neck Neck: Supple, no meningeal sign, No adenopathy - Cardiac Cardiac: RRR, No murmur, No gallop - Respiratory Respiratory: No respiratory distress, Clear bilaterally - Abdomen Abdomen: Normal bowel sounds, Soft, Non tender - Back Back: No: No CVA TTP (Tenderness to the left CVA.) - Derm Derm: Normal color, Warm and dry, No rash - Extremities Extremities: No deformity Results - Vitals Vitals: Vital Signs - 24 hr 01/20/22 01/20/22 14:40 17:35 Temperature 36 C L 37 C Heart Rate 73 76 Respiratory 16 18 Rate Blood Pressure 153/77 H 211/91 H O2 Saturation 97 99 Oxygen O2 Source Room air - Labs Labs: Laboratory Tests 01/20/22 01/20/22 01/20/22 14:54 15:01 15:01 WBC 7.9 RBC 4.24 Hgb 13.8 Hct 40.9 MCV 96.5 MCH 32.5 H MCHC 33.7 RDW 12.6 Plt Count 296 MPV 9.3 Neut # (Auto) 5.0 Lymph # (Auto) 2.2 [place] # (Auto) 0.6 Eos # (Auto) 0.1 Baso # (Auto) 0.0 Absolute Nucleated RBC 0.00 Nucleated RBC % 0.0 Sodium 139 Potassium 4.2 Chloride 101 Carbon Dioxide 27 Anion Gap 11.0 BUN 22 H Creatinine 1.0 Estimated GFR (MDRD) 54 L Glucose 98 Calcium 10.1 Total Bilirubin 0.5 AST 22 ALT 23 Alkaline Phosphatase 54 Total Protein 7.9 Albumin 4.3 Globulin 3.6 Albumin/Globulin Ratio 1.2 Lipase 43 Urine Color YELLOW Urine Clarity CLEAR Urine pH 6.0 Ur Specific [place] 1.020 Urine Protein NEGATIVE Urine Glucose (UA) NEGATIVE Urine Ketones NEGATIVE Urine Occult Blood NEGATIVE Urine Nitrite NEGATIVE Urine Bilirubin NEGATIVE Urine Urobilinogen 0.2 (NORMAL) Ur Leukocyte Esterase NEGATIVE Ur Microscopic Review NOT INDICATED Urine Culture Comments NOT INDICATED - Rads (name of study) cxr Radiology: Final report received (No acute cardiopulmonary process) PD MEDICAL DECISION MAKING - ED course Complexity details: reviewed results, re-evaluated patient, considered differential, d/w patient ED course: Well-appearing 71-year-old female return to the emergency department for evaluation of left thoracic pain that radiates to her CVA area. Mild tenderness on palpation. Today her screening labs are entirely unremarkable specifically n o hematuria. Seen at this ED on January 10 found to have acute pancreatitis. Her lipase has normalized and the CT scan though without contrast was without acute findings. Patient is recently stopped taking ibuprofen due to gastric upset. She has found Tylenol and that is sufficient to control her pain. She was given Toradol IM here with marked resolution of her symptoms. Given CT scan 2 weeks ago that did not show any findings of stones or obstructions I do not feel it should be repeated today in the absence of urinary findings. Patient is advised continued follow-up with her primary care doctor as well as her advanced developer which is scheduled for the . Otherwise emergent return precautions were discussed for fevers, cough that worsens chest pain shortness of air or hematuri a Departure - Departure Disposition: Home, Self Care Clinical Impression: Thoracic back pain Qualifiers: Chronicity: acute Back pain laterality: left Qualified Code(s): M54.6 - Pain in thoracic spine Condition: Stable Record reviewed to determine appropriate education?: Yes Comments: Rubio you were seen today in the emergency department for pain on the left side of your upper back. You were seen in this emergency department on 10 January and found to have a lipase elevation. However today your lipase is normal. In fact your CBC and electrolytes and urine are all essentially normal. I suspect that the cause of your pain is musculoskeletal. We did give you an injection of Toradol which seems to have resolved it. You can take ibuprofen with food once or twice a day for pain. Continue to alternate with Tylenol. Continue follow-up with your primary care doctor as well as with your advanced developer. If you develop chest pain, have severe shortness of air, uncontrolled vomiting, bloody stools or black stools and please return immediately to the emergency department
--- NOTE | 2022-01-20 18:15 | XRAY Report ---
PROCEDURE: Chest 1 View X-Ray INDICATIONS: chest pain TECHNIQUE: One view of the chest was acquired. COMPARISON: Chest x-ray 05/15/2020 FINDINGS: Surgical changes and devices: None. Lungs and pleura: No pleural effusions or pneumothorax. Lungs are clear. Mediastinum: Mediastinal contours appear normal. Heart size is enlarged. Bones and chest wall: No suspicious bony lesions. Overlying soft tissues appear unremarkable. IMPRESSION: No acute pulmonary process. Reviewed by: Cristal Pierre MD on 01/20/2022 5:13 PM [place] Approved by: Cristal Pierre MD on 01/20/2022 5:13 PM [place] Station ID: [id number]
[2022-01-20 18:51] VITALS: BP 138/71
== END 2022-01-20 18:51 | disposition home or self-care (01) ==
LOC: ED 14:21
DX: M54.6 Pain in thoracic spine (principal)
CPT/HCPCS: 36415; 80053; 81001; 81003; 83690; 85025; 87086; 96372; 99284

== ENCOUNTER 2022-06-24 08:00 | Outpatient (CLI) | payer MEDICARE, OTHER ==
--- NOTE | 2022-06-24 19:23 | XRAY Report ---
PROCEDURE: Ribs w/PA Chest LT INDICATIONS: CONTUSION OF LEFT FRONT WALL OF THORAX TECHNIQUE: 2 views of the left ribs were acquired, along with a single view chest. COMPARISON: Chest radiograph 01/20/2022 FINDINGS: Surgical changes and devices: None. Bones and chest wall: No fractures or dislocations. No suspicious bony lesions. Overlying soft tis sues appear unremarkable. Lungs and pleura: No pleural effusions or pneumothorax. Lungs appear clear. Mediastinum: Mediastinal contours appear normal. Heart size is normal. IMPRESSION: No acute displaced rib fracture identified. CT of the chest could be obtained if clinically indicated . No pneumothorax. Reviewed by: Adrián Fernández MD on 06/24/2022 7:22 PM PDT Approved by: Adrián Fernández MD on 06/24/2022 7:22 PM PDT Station ID: [id number]
== END 2022-06-24 08:01 | disposition home or self-care (01) ==
LOC: DI.S 08:00
PROVIDERS: ATTEND Physician Assistant Medical
DX: S20.212A Contusion of left front wall of thorax, initial encounter (principal)

== ENCOUNTER 2022-07-11 14:42 | Outpatient (CLI) | payer MEDICARE, OTHER ==
[2022-07-11 19:57] LABS: ALBUMIN/GLOBULIN RATIO 1.2 (1.0-2.2); ALKALINE PHOSPHATASE 58 IU/L (42-121); ALT ALANINE AMINOTRANSFERASE 20 IU/L (10-60); AST ASPARTATE AMINOTRANSFERASE 21 IU/L (10-42); BILIRUBIN,TOTAL 0.6 mg/dL (0.2-1.0); BUN - BLOOD UREA NITROGEN 24 mg/dL (6-20); CALCIUM 9.7 mg/dL (8.5-10.3); CARBON DIOXIDE - CO2 28 mmol/L (21-32); CHLORIDE 105 mmol/L (101-111); CHOL/HDL RATIO 3.3 (<4.4); CHOLESTEROL 174 mg/dL; CREATININE 1.3 mg/dL (0.4-1.0); GFR - MDRD 40 (>89); GLUCOSE 108 mg/dL (70-100); HDL CHOLESTEROL 52 mg/dL; LDL CHOLESTEROL,CALCULATED 91 mg/dL; LDL/HDL RATIO 1.8 (<4.4); SODIUM 142 mmol/L (135-145); TOTAL PROTEIN 7.4 g/dL (6.7-8.2); TRIGLYCERIDES 155 mg/dL; VLDL CHOLESTEROL 31 mg/dL
== END 2022-07-11 14:43 | disposition home or self-care (01) ==
LOC: LAB.S 14:42
PROVIDERS: ATTEND Internal Medicine Cardiovascular Disease
DX: I10 Essential (primary) hypertension (principal); E78.5 Hyperlipidemia, unspecified; R06.02 Shortness of breath; R06.09 Other forms of dyspnea
CPT/HCPCS: 36415; 80053; 80061; 82172; 83721

== ENCOUNTER 2022-09-16 07:00 | Outpatient (CLI) | payer MEDICARE, OTHER ==
--- NOTE | 2022-09-16 12:51 | XRAY Report ---
PROCEDURE: Hip w/Pelvis 2-3V RT INDICATIONS: RIGHT HIP PAIN TECHNIQUE: AP pelvis with lateral view(s) of the right hip(s). COMPARISON: CT of abdomen and pelvis dated 01/11/2022. FINDINGS: Bones: Again noted is prior right total hip arthroplasty with anatomic right hip alignment. No fract ures or dislocations. No gross hardware loosening or failure. Moderate to severe left hip joint osteo arthritic changes are seen. No evidence of avascular necrosis of femoral head. Pelvic ring appears in tact. No suspicious bony lesions. Soft tissues: The visualized bowel gas pattern is normal. No suspicious soft tissue calcifications. IMPRESSION: Prior right total hip arthroplasty with anatomic right hip alignment. No acute right hip fracture or dislocation. No gross hardware loosening or failure. Reviewed by: Darryl Ramos MD on 09/16/2022 12:50 PM PST Approved by: Darryl Ramos MD on 09/16/2022 12:50 PM PST Station ID: [id number]
== END 2022-09-16 07:01 | disposition home or self-care (01) ==
LOC: DI.S 07:00
PROVIDERS: ATTEND Physician Assistant Medical
DX: M25.552 Pain in left hip (principal); Z96.641 Presence of right artificial hip joint

== ENCOUNTER 2022-12-19 22:25 | Emergency (ER) | payer MEDICARE, OTHER ==
[2022-12-19 22:48] LABS: BILIRUBIN,URINE NEGATIVE (NEGATIVE); GLUCOSE, URINE (UA) NEGATIVE (NEGATIVE); KETONES,URINE (UA) NEGATIVE (NEGATIVE); LEUKOCYTE ESTERASE, URINE NEGATIVE (NEGATIVE); NITRITE,URINE NEGATIVE (NEGATIVE); OCCULT BLOOD,URINE NEGATIVE (NEGATIVE); PROTEIN,URINE NEGATIVE (NEGATIVE); UROBILINOGEN,URINE 0.2 (NORMAL) E.U./dL (NORMAL)
[2022-12-19 22:50] LABS: CLARITY,URINE CLEAR (CLEAR)
--- OUTSIDE RECORDS SUMMARY | 2022-12-19 23:02 | EXTERNAL MEDICAL SUMMARY RPT | Continuity of Care Document ---
:1950 Author Organization [facility] Address [address] [place] [address] Phone Care Team Providers Name Role Phone Jaydon Emerson Md Unavailable Unavailable Allergies No information. Encounters No information. Functional Status No information. Immunizations No information. Medications date description facility 2022-09-20 00:00 [facility] [place] 2022-09-23 00:00 [facility] [place] 2022-09-20 00[facility]00 [facility] [place] 2022-09-23 00:00 [facility] [place] 2022-09-20 00[facility]00 [facility] [place] 2022-09-23 00[facility]00 [facility] [place] 2022-09-20 00:00 [facility] [place] 2022-09-23 00:00 [facility] [place] Problems No information. Procedures No information. Results/Labs No information. Social History No information. Vital Signs No information.
--- NOTE | 2022-12-19 23:21 | ED Physician Documentation ---
PD HPI BACK PAIN - Stated complaint Stated Complaint: KIDNEY PAIN - Chief complaint Chief Complaint: Abd Pain - History obtained from History obtained from: Patient - Additional information Additional information: HPI from patient. Patient c/o low/mid back pain bilateral perilumbar (upper) area but not midline. Pain does not radiate. She describes the pain as a burning sensation. She has had the pain, episodically, for past few days but more intense and persistent tonight. No exacerbating nor ameliorating factors. She says she has "kidney disease stage three". She also has h/o renal colic and wo nders if the pain might be due to kidney stones or have something to do with her CKD. Review of Systems Constitutional: denies: Fever, Chills, Sweats Cardiac: reports: Reviewed and negative Respiratory: reports: Reviewed and negative GI: denies: Abdominal Pain, Nausea, Vomiting, Constipation, Diarrhea : denies: Dysuria, Frequency, Hematuria Skin: denies: Rash Musculoskeletal: reports: Back pain Neurologic: denies: Focal weakness, Numbness PD PAST MEDICAL HISTORY - Past Medical History Cardiovascular: Hypertension Respiratory: Asthma Neuro: None Endocrine/Autoimmune: HyPOthyroidism GI: GERD, Colon polyps MOTION PICTURE PROJECTIONIST: None : None HEENT: None Psych: None Musculoskeletal: None Derm: None - Past Surgical History Past Surgical History: Yes General: Cholecystectomy, Colonoscopy Ortho: Hip replacement, Knee replacement, Shoulder arthroplasty, Arthroscopic surgery /MOTION PICTURE PROJECTIONIST: Hysterectomy, Breast reduction HEENT: Cataracts - Present Medications Home Medications: Ambulatory Orders Medication Instructions Recorded Confirmed Levothyroxine [Synthroid] 112 mcg PO QDAC 03/16/13 12/19/22 Spironolactone [Aldactone] 25 mg PO DAILY 01/11/22 12/19/22 Chlorthalidone 12.5 mg ORAL DAILY 01/20/22 12/19/22 - Allergies Allergies/Adverse Reactions: Allergies Allergy/AdvReac Type Severity Reaction Status Date / Time acetaminophen [From Vicodin] Allergy Intermediate Nausea Verified 12/19/22 22:34 hydrocodone bitartrate * Allergy Intermediate Nausea Verified 12/19/22 22:34 [From Vicodin] latex Allergy Intermediate Hives Verified 12/19/22 22:34 morphine Allergy Intermediate Nausea Verified 12/19/22 22:34 Iodinated Contrast Media AdvReac Cramps Verified 12/19/22 23:49 prednisone AdvReac Headache Verified 12/19/22 22:35 - Social History Does the pt smoke?: No Smoking Status: Never smoker Does the pt drink ETOH?: Yes Does the pt have substance abuse?: No - Immunizations Immunizations are current?: Yes Immunizations: TDAP >10years/unknown - POLST Patient has POLST: No PD ED PE NORMAL - Vitals Vital signs reviewed: Yes - General General: Alert and oriented X 3, No acute distress, Well developed/nourished - Neck Neck: Supple, no meningeal sign - Cardiac Cardiac: RRR, No murmur, No gallop, No rub - Respiratory Respiratory: No respiratory distress, Clear bilaterally - Abdomen Abdomen: Normal bowel sounds, Soft, Non tender, Non distended, No organomegaly - Back Back: No CVA TTP, No spinal TTP - Derm Derm: No rash - Extremities Extremities: No edema Results - Vitals Vitals: Oxygen O2 Source Room air - Labs Labs: Laboratory Tests 12/19/22 22:40 Urine Color YELLOW Urine Clarity CLEAR Urine pH 7.0 Ur Specific [place] 1.010 Urine Protein NEGATIVE Urine Glucose (UA) NEGATIVE Urine Ketones NEGATIVE Urine Occult Blood NEGATIVE Urine Nitrite NEGATIVE Urine Bilirubin NEGATIVE Urine Urobilinogen 0.2 (NORMAL) Ur Leukocyte Esterase NEGATIVE Ur Microscopic Review NOT INDICATED Urine Culture Comments NOT INDICATED - Rads (name of study) CT A/P Relevant Findings:: Prelim report reviewed, See rad report PD Medical Decision Making - ED course Complexity details: reviewed results, re-evaluated patient, considered differential, d/w patient ED course: UA performed and results are without abnormality. CT A/P is also undertaken, results are without acute or diagnostic findings. CT findings include right lower lobe pulmonary nodules unchanges compared to 01/11/22, diverticulosis without evidence of diverticulitis. Given the limited are of involvement (bilateral upper lumbar without abdominal pain, tenderness) and overall appearance (NAD), no other tests performed at this time. Return precautions discussed, results reviewed. Departure - Departure Disposition: 01 Home, Self Care Clinical Impression: Back pain Qualifiers: Back pain location: low back pain Chronicity: acute Back pain laterality: bilateral Sciatica presence: without sciatica Qualified Code(s): M54.50 - Low back pain, unspecified Condition: Good Instructions: ED Neck Back Pain General Follow-Up: [facility] [Primary Care Provider] - Comments: The results of the urinalysis were normal; there were no findings on the urinal ysis to suggest an infection such as a bladder or kidney infection, and the lack of any blood in the sample would argue against kidney stones. The CAT scan of your abdomen and pelvis did not have any acute findings. As we discussed, right lung pulmonary nodules were noted but without any change compared to a similar study performed in December 2021. Diverticulosis was noted without any evidence of diverticulitis. There were degenerative changes of the vertebra of the back. The cause of your symptoms is not apparent at this time, but further testing in the emergency department is unlikely to achieve a specific diagnosis or indicate a specific treatment. I recommend that you contact your primary care provider when their office opens on Thursday to arrange for next available appointment for reevaluation. If your symptoms worsen, you can always return to the emergency department. Discharge Date/Time: 12/20/22 02:29
--- NOTE | 2022-12-20 01:40 | CT Report ---
PROCEDURE: ABDOMEN/PELVIS WO INDICATIONS: bilateral mid/low back pain TECHNIQUE: Noncontrast 5 mm thick sections acquired from the diaphragms to the symphysis. 5 mm coronal and sagi ttal reformats were then performed. For radiation dose reduction, the following was used: automated exposure control, adjustment of mA and/or kV according to patient size. COMPARISON: CT abdomen pelvis 01/11/2022, 03/20/2020. FINDINGS: Image quality: There is metallic streak artifact from patient's right hip prosthesis limiting evaluat ion. Lung bases:A right lower lobe pulmonary nodule measuring up to 0.6 cm in series [address] able in size compared to the 01/11/2022 study. No definite correlate is identified on the 03/20/2020 st udy. There is a stable peripheral subpleural nodule measuring up to 0.4 cm on series 4 image 20. Mild dependent atelectasis and scarring are demonstrated bilaterally. Heart: Heart is normal in size. There is a small hiatal hernia. ABDOMEN: Liver: No mass lesion. Gallbladder:Surgically absent. Biliary ducts: No biliary ductal dilatation. Pancreas: Unremarkable. Spleen: Normal in size. Adrenal Glands: No adrenal nodules. Kidneys and Ureters: No hydronephrosis. Stomach and Bowel: Stomach, small bowel loops, and colon are normal in caliber and wall thickness. T he appendix is normal. There is colonic diverticulosis without acute diverticulitis. Peritoneum: No abnormal intraperitoneal fluid. No free air. Ventral Wall: No hernia. Abdominal Nodes: No retroperitoneal or mesenteric adenopathy by size criteria. Vessels: Aorta and inferior vena cava are normal in size. PELVIS: Pelvic Organs: Unremarkable. Bladder: Unremarkable. Pelvic Nodes: No enlarged lymph nodes. Miscellaneous: No inguinal hernias. Bones: There is multilevel degenerative disc disease including moderate degeneration at L4-5 and L5-S 1. Visualized osseous structures demonstrate no suspicious lesions. IMPRESSION: 1. No definite acute intra-abdominal abnormality. 2. Right lower lobe pulmonary nodules including a 0.6 cm nodule which appears stable compared to the 01/11/2022 study. Recommend continued follow-up to demonstrate stability. 3. Colonic diverticulosis without acute diverticulitis. Reviewed by: Siddhartha Mast MD on 12/20/2022 1:39 AM PDT Approved by: Siddhartha Mast MD on 12/20/2022 1:39 AM PDT Station ID: [id number]
[2022-12-20 02:30] VITALS: BP 158/62
== END 2022-12-20 02:29 | disposition home or self-care (01) ==
LOC: ED 22:25
DX: M54.50 Low back pain, unspecified (principal)
CPT/HCPCS: 81001; 81003; 87086; 99283; 99284

== ENCOUNTER 2023-07-14 10:37 | Outpatient (CLI) | payer MEDICARE, OTHER ==
[2023-07-14 14:36] LABS: BASOPHILS % (AUTO) 0.5 %; EOSINOPHILS # (AUTO) 0.1 10^3/uL (0.0-0.7); EOSINOPHILS % (AUTO) 1.8 %; HCT - HEMATOCRIT 38.5 % (37.0-47.0); HGB - HEMOGLOBIN 12.3 g/dL (12.0-16.0); LYMPHOCYTES # (AUTO) 1.9 10^3/uL (1.5-3.5); LYMPHOCYTES % (AUTO) 33.2 %; MEAN CORPUSCULAR HEMOGLOBIN 31.3 pg (27.0-31.0); MEAN CORPUSCULAR HGB CONC 31.9 g/dL (32.0-36.0); MEAN PLATELET VOLUME 9.7 fL (7.9-10.8); MONOCYTES # (AUTO) 0.4 10^3/uL (0.0-1.0); MONOCYTES % (AUTO) 7.4 %; NEUTROPHILS # (AUTO) 3.2 10^3/uL (1.5-6.6); NEUTROPHILS % (AUTO) 56.7 %; PLT - PLATELET COUNT 323 10^3/uL (130-450); RED BLOOD COUNT 3.93 10^6/uL (4.20-5.40); RED CELL DISTRIBUTION WIDTH 12.2 % (12.0-15.0); WHITE BLOOD COUNT 5.7 x10^3/uL (4.8-10.8)
[2023-07-14 15:24] LABS: ALBUMIN 4.3 g/dL (3.2-5.5); ALBUMIN/GLOBULIN RATIO 1.3 (1.0-2.2); ALKALINE PHOSPHATASE 61 IU/L (42-121); ALT ALANINE AMINOTRANSFERASE 13 IU/L (10-60); AST ASPARTATE AMINOTRANSFERASE 17 IU/L (10-42); BILIRUBIN,TOTAL 0.4 mg/dL (0.2-1.0); BUN - BLOOD UREA NITROGEN 18 mg/dL (6-20); CALCIUM 9.8 mg/dL (8.5-10.3); CARBON DIOXIDE - CO2 30 mmol/L (21-32); CHLORIDE 106 mmol/L (101-111); CHOL/HDL RATIO 3.2 (<4.4); CHOLESTEROL 177 mg/dL; CREATININE 1.1 mg/dL (0.6-1.3); GFR - MDRD 48 (>89); GLUCOSE 98 mg/dL (74-104); HDL CHOLESTEROL 55 mg/dL; LDL CHOLESTEROL,CALCULATED 107 mg/dL; LDL/HDL RATIO 1.9 (<4.4); POTASSIUM 4.7 mmol/L (3.5-4.5); SODIUM 140 mmol/L (135-145); TOTAL PROTEIN 7.5 g/dL (6.4-8.9); TRIGLYCERIDES 76 mg/dL (48-352); VLDL CHOLESTEROL 15 mg/dL
[2023-07-14 15:33] LABS: THYROID STIMULATING HORMONE 1.61 uIU/mL (0.34-5.60)
== END 2023-07-14 10:38 | disposition home or self-care (01) ==
LOC: LAB.S 10:37
PROVIDERS: ATTEND Internal Medicine
DX: I10 Essential (primary) hypertension (principal); E03.9 Hypothyroidism, unspecified
CPT/HCPCS: 36415; 80053; 80061; 83721; 84443; 85025

== ENCOUNTER 2023-12-03 10:13 | Outpatient (CLI) | payer MEDICARE, OTHER ==
[2023-12-03 16:01] LABS: ALBUMIN 4.4 g/dL (3.2-5.5); ALBUMIN/GLOBULIN RATIO 1.4 (1.0-2.2); ALKALINE PHOSPHATASE 57 IU/L (42-121); ALT ALANINE AMINOTRANSFERASE 14 IU/L (10-60); AST ASPARTATE AMINOTRANSFERASE 19 IU/L (10-42); BILIRUBIN,TOTAL 0.7 mg/dL (0.2-1.0); BUN - BLOOD UREA NITROGEN 20 mg/dL (6-20); CALCIUM 10.1 mg/dL (8.5-10.3); CARBON DIOXIDE - CO2 27 mmol/L (21-32); CHLORIDE 104 mmol/L (101-111); CHOL/HDL RATIO 3.1 (<4.4); CHOLESTEROL 185 mg/dL; CREATININE 1.1 mg/dL (0.6-1.3); GFR - MDRD 48 (>89); GLUCOSE 110 mg/dL (74-104); HDL CHOLESTEROL 59 mg/dL; LDL CHOLESTEROL,CALCULATED 105 mg/dL; LDL/HDL RATIO 1.8 (<4.4); POTASSIUM 4.5 mmol/L (3.5-4.5); SODIUM 138 mmol/L (135-145); TOTAL PROTEIN 7.5 g/dL (6.4-8.9); TRIGLYCERIDES 106 mg/dL (48-352); VLDL CHOLESTEROL 21 mg/dL
[2023-12-03 16:16] LABS: FERRITIN 156.3 ng/mL (11.0-306.8)
[2023-12-03 16:22] LABS: CREATININE,URINE 280.7 mg/dL; MICROALBUM/CREATININE RATIO,UR 96.5 ug/mg (<30.0); MICROALBUMIN,URINE 27.1 mg/dL
== END 2023-12-03 10:14 | disposition home or self-care (01) ==
LOC: LAB.S 10:13
PROVIDERS: ATTEND Physician Assistant
DX: I10 Essential (primary) hypertension (principal); E78.5 Hyperlipidemia, unspecified; D64.9 Anemia, unspecified; R53.83 Other fatigue; R94.6 Abnormal results of thyroid function studies
CPT/HCPCS: 36415; 80053; 80061; 82043; 82570; 82607; 82728; 82746; 83540; 83721; 84466